=== PATIENT | female | born 1950 | race Caucasian/White ===

== ENCOUNTER 2025-02-25 12:40 | Inpatient (IN) | payer MEDICARE, MEDICAID ==
[~2025-02-25] VITALS: Ht 162.6 cm; Wt 73.6 kg
[~2025-02-25 12:40] MED LIST: AMLO5TAB88 MT; ASPI-1497 MT; ATEN-42 MT; ATOR10TA69 MT; BACL-141 MT; FERR325T6 MT; LAMO100T16 MT; LEVE-20 MT; PANT40TA51 MT; RISP-28 MT; TOPI-252 MT
[2025-02-25 12:43] VITALS: O2SAT 99
[2025-02-25] MEDS: LAMOTRIGINE 100MG TABLET PO SCH (13:31)
[2025-02-25 13:32] LABS: BASOPHILS % 0.3 % (0.0-2.0); EOSINOPHILS % 0.9 % (0.0-5.0); HEMATOCRIT. 37.4 % (36.0-48.0); HEMOGLOBIN. 13.0 g/dL (12.0-16.0); LYMPHOCYTES % 22.9 % (20.0-50.0); MEAN PLATELET VOLUME 6.9 fl (7.4-10.4); MONOCYTES % 7.8 % (2.0-8.0); NEUTROPHILS % 68.1 % (40.0-76.0); PLATELET 203 x1000/uL (130-400); RED BLOOD CELL COUNT 4.25 mill/uL (4.2-5.4); RED CELL DISTRIBUTION WIDTH 13.2 % (11.6-14.6)
[2025-02-25 13:50] LABS: CREATININE 0.9 mg/dL (0.6-1.0); UREA NITROGEN BLOOD 9 mg/dL (9-23)
[2025-02-25 13:51] LABS: ETHANOL BLOOD < 10 mg/dL (<10)
[2025-02-25 15:53] LABS: CLARITY URINE CLOUDY (CLEAR); COLOR URINE YELLOW (YELLOW); GLUCOSE URINE NEGATIVE (NEGATIVE); KETONES URINE NEGATIVE (NEGATIVE); LEUKOCYTE ESTERASE URINE 2+ (NEGATIVE); NITRITE URINE POSITIVE (NEGATIVE); OCCULT BLOOD URINE NEGATIVE (NEGATIVE); PH URINE 8.0 (4.5-8.0); PROTEIN URINE NEGATIVE (NEGATIVE); SPECIFIC GRAVITY URINE 1.008 (1.005-1.030); UROBILINOGEN URINE 1.0 E.U./dL (0.2-1.0)
[2025-02-25] MEDS: LIDOCAINE HCL 1% 20ML VIAL INFIL ONE (15:59)
[2025-02-25 16:00] LABS: *AMPHETAMINES SCREEN URINE NEGATIVE (NEGATIVE); *BARBITURATES SCREEN URINE NEGATIVE (NEGATIVE); *BENZODIAZEPINES SCREEN URINE NEGATIVE (NEGATIVE); *COCAINE SCREEN URINE NEGATIVE (NEGATIVE); METHADONE URINE SCREEN NEGATIVE (NEGATIVE); OPIATES URINE SCREEN NEGATIVE (NEGATIVE); PHENCYCLIDINE URINE SCREEN NEGATIVE (NEGATIVE)
[2025-02-25 16:01] LABS: CANNABINOID URINE SCREEN NEGATIVE (NEGATIVE); ECSTASY MDMA SCREEN URINE NEGATIVE (NEGATIVE)
[2025-02-25 16:34] LABS: BACTERIA URINE 2+; RBC URINE 0-2 /hpf (0-2); SQUAMOUS EPITHELIAL CELL URINE 1+ /lpf (RARE/1+); WBC URINE NONE SEEN /hpf (0-2)
[2025-02-25 17:50] VITALS: BP 102/75; PULSE 67; RESP 18; TEMP 36.7; O2SAT 98
[2025-02-25] MEDS ORDERED: ONDANSETRON HCL 4MG/2ML INJ IV PRN (18:30)
[2025-02-25] MEDS ORDERED: ACETAMINOPHEN 325MG TABLET PO PRN (18:30)
[2025-02-25] MEDS ORDERED: ATENOLOL 25MG TABLET PO ONE (18:45)
[2025-02-25] MEDS ORDERED: ASCORBIC ACID 500 MG TABLET PO SCH (18:45)
[2025-02-25] MEDS ORDERED: LAMOTRIGINE 100MG TABLET PO SCH (18:45)
[2025-02-25] MEDS ORDERED: MAGNESIUM HYDROXIDE 400MG/5ML 30ML UDC PO PRN (18:45)
[2025-02-25] MEDS ORDERED: DOCUSATE SODIUM 100MG CAPSULE PO SCH (18:45)
[2025-02-25] MEDS ORDERED: ASPIRIN 81MG TABLET PO SCH (18:45)
[2025-02-25] MEDS ORDERED: AMLODIPINE 5MG TABLET PO SCH (18:45)
[2025-02-25] MEDS ORDERED: ALBUTEROL (0.5%) 2.5MG/0.5ML NEB HHN ONE (18:45)
[2025-02-25] MEDS ORDERED: ACETAMINOPHEN 650MG/20.3ML UDC PO PRN (18:45)
[2025-02-25] MEDS ORDERED: NA PHOS,M-B/NA PHOS,DI-BA ENEMA 118ML PR PRN (18:45)
[2025-02-25] MEDS ORDERED: RISPERIDONE 1MG TABLET PO SCH (18:45)
[2025-02-25] MEDS ORDERED: IPRATROPIUM/ALBUTEROL 0.5-3(2.5)MG/3ML NEB HHN PRN (19:00)
[2025-02-25 20:00] VITALS: BP_SYST 120; BP_SYST 149; BP_DIAS 64; BP_DIAS 88; PULSE 63; PULSE 80; RESP 18; RESP 19; TEMP 36.5292; TEMP 36.8; O2SAT 96
[2025-02-25] MEDS: BACLOFEN 10MG TABLET PO SCH (20:48)
[2025-02-25] MEDS: LEVETIRACETAM 500MG TABLET PO SCH (20:48)
[2025-02-25] MEDS: RISPERIDONE 1MG TABLET PO SCH (20:48)
[2025-02-25] MEDS ORDERED: TOPIRAMATE 100MG TABLET PO SCH (21:00)
[2025-02-25] MEDS ORDERED: ATORVASTATIN CALCIUM 10MG TABLET PO SCH (21:00)
[2025-02-25] MEDS ORDERED: LEVETIRACETAM 500MG in NACL 100ML PREMIX IV SCH (21:00)
[2025-02-25] MEDS ORDERED: LEVETIRACETAM 500MG PREMIX 100 ML IV SCH (21:00)
[2025-02-26] VITALS: BP 106/48; PULSE 75; RESP 19; TEMP 36.4; O2SAT 98
[2025-02-26 04:00] VITALS: BP 123/69; PULSE 68; RESP 19; TEMP 36.7; O2SAT 97
[2025-02-26] MEDS ORDERED: PANTOPRAZOLE 40MG DR TABLET PO SCH (07:10)
[2025-02-26 08:00] VITALS: BP 145/70; PULSE 73; RESP 19; TEMP 36.5; O2SAT 100
[2025-02-26 08:41] LABS: BASOPHILS % 0.3 % (0.0-2.0); EOSINOPHILS % 1.7 % (0.0-5.0); HEMATOCRIT. 37.8 % (36.0-48.0); HEMOGLOBIN. 12.9 g/dL (12.0-16.0); LYMPHOCYTES % 29.1 % (20.0-50.0); MEAN PLATELET VOLUME 7.1 fl (7.4-10.4); MONOCYTES % 8.2 % (2.0-8.0); NEUTROPHILS % 60.7 % (40.0-76.0); PLATELET 194 x1000/uL (130-400); RED BLOOD CELL COUNT 4.14 mill/uL (4.2-5.4); RED CELL DISTRIBUTION WIDTH 13.3 % (11.6-14.6)
[2025-02-26 08:45] LABS: CREATININE 0.8 mg/dL (0.6-1.0); UREA NITROGEN BLOOD 9 mg/dL (9-23)
[2025-02-26] MEDS ORDERED: MEDICATION NOT ON FORMULARY EA (Ferrous Sulfate 1 TAB) MT SCH (09:00)
[2025-02-26] MEDS: MULTIVITAMINS,THER W-MINERALS TABLET PO SCH (09:00)
[2025-02-26] MEDS ORDERED: FERROUS SULFATE 325MG TABLET PO SCH (09:00)
[2025-02-26] MEDS ORDERED: AMLODIPINE 5MG TABLET PO SCH (09:00)
[2025-02-26] MEDS: FERROUS SULFATE 325MG TABLET PO SCH (09:00)
[2025-02-26] MEDS: PANTOPRAZOLE SODIUM 40 MG/VIAL IV SCH (09:45)
[2025-02-26] MEDS: LAMOTRIGINE 100MG TABLET PO SCH (09:45)
[2025-02-26] MEDS: THIAMINE HCL 100MG TABLET PO SCH (09:45)
[2025-02-26] MEDS: ATORVASTATIN CALCIUM 10MG TABLET PO SCH (09:46)
[2025-02-26] MEDS: TOPIRAMATE 25MG TABLET PO SCH (09:46)
[2025-02-26] MEDS: ATENOLOL 25MG TABLET PO SCH (09:46)
[2025-02-26] MEDS: ASPIRIN 81MG EC TABLET PO SCH (09:46)
[2025-02-26 12:00] VITALS: BP 124/66; PULSE 67; RESP 18; TEMP 36.6; O2SAT 97
[2025-02-26 16:00] VITALS: BP 129/67; PULSE 67; RESP 18; TEMP 36.7; O2SAT 97
[2025-02-26 20:00] VITALS: BP 109/56; PULSE 65; RESP 18; TEMP 36.1; O2SAT 96
[2025-02-27 04:00] VITALS: BP 137/71; PULSE 68; RESP 17; TEMP 36.7; O2SAT 97
[2025-02-27 08:00] VITALS: BP 131/80; PULSE 66; RESP 18; TEMP 36.4; O2SAT 97
[2025-02-27] MEDS: ENOXAPARIN 40MG/0.4ML SYR SUBCUT SCH (08:22)
[2025-02-27 12:00] VITALS: BP 123/61; PULSE 60; RESP 18; TEMP 36.5; O2SAT 97
[2025-02-27 16:00] VITALS: BP_SYST 132; BP_SYST 142; BP_DIAS 77; PULSE 100; PULSE 74; RESP 20; TEMP 36.4; O2SAT 98
[2025-02-27 20:00] VITALS: BP 134/72; PULSE 73; RESP 17; TEMP 36.4; O2SAT 99
[2025-02-28] VITALS: BP 121/75; PULSE 69; RESP 18; TEMP 36.4; O2SAT 99
[2025-02-28 04:00] VITALS: BP 143/84; PULSE 66; RESP 18; TEMP 36.5; O2SAT 99
[2025-02-28 08:00] VITALS: BP 130/69; PULSE 68; RESP 20; TEMP 36.1; O2SAT 98
[2025-02-28 12:00] VITALS: BP 110/60; PULSE 70; RESP 18; TEMP 36.1; O2SAT 99
[2025-02-28 16:00] VITALS: BP 148/81; PULSE 63; RESP 18; TEMP 37; O2SAT 96
[2025-02-28 20:00] VITALS: BP 117/62; PULSE 72; RESP 20; TEMP 37; O2SAT 98
[2025-02-28] MEDS: HYDROCODONE/ACETAMINOPHEN 10/325MG TABLET PO PRN (21:27)
[2025-03-01] VITALS: BP_SYST 120; BP_DIAS 70; BP_DIAS 80; PULSE 89; RESP 18; TEMP 37; O2SAT 97
[2025-03-01 04:00] VITALS: BP 128/71; PULSE 77; RESP 18; TEMP 36.9; O2SAT 98
[2025-03-01 08:00] VITALS: BP 122/78; PULSE 61; RESP 18; TEMP 36.6; O2SAT 99
[2025-03-01 12:00] VITALS: BP 132/75; PULSE 68; RESP 18; TEMP 36; O2SAT 98
[2025-03-01 12:05] VITALS: BP 119/62; PULSE 68; RESP 20; TEMP 97.9
[2025-03-01 12:17] VITALS: BP 131/72; PULSE 65; RESP 18; TEMP 98.2
== END 2025-03-01 15:01 | DRG 101 ==
LOC: ER 13:50 → EDBEDREQ 17:12 → EDBEDREQTM 17:12 → 8WST 17:56
PROVIDERS: ADMIT Internal Medicine; ATTEND Internal Medicine
DX: G40.909 Epilepsy, unspecified, not intractable, without status epilepticus (principal); E78.5 Hyperlipidemia, unspecified; I10 Essential (primary) hypertension; J45.909 Unspecified asthma, uncomplicated; E87.6 Hypokalemia; Z79.82 Long term (current) use of aspirin; Z79.899 Other long term (current) drug therapy; Z86.73 Personal history of transient ischemic attack (TIA), and cerebral infarction without residual deficits; Z88.5 Allergy status to narcotic agent
CPT/HCPCS: 36415; 80048; 80305; 80320; 81003; 85025; 93005; 93970; 99285; A4615; J1650; J2003; J2470; G0480